=== PATIENT | female | born 1960 | race Caucasian/White ===

== ENCOUNTER 2016-10-30 21:59 | Emergency (ER) | payer OTHER ==
[~2016-10-30] VITALS: Ht 165.1 cm; Wt 92.4 kg
[~2016-10-30 21:59] MED LIST: AVAPRO150 MG PO; NORVASC10 MG PO
[2016-10-30] MEDS ORDERED: NAPROSYN500 MG PO (23:42)
[2016-10-30 23:51] VITALS: BP 140/77
== END 2016-10-30 23:52 | disposition home or self-care (01) ==
LOC: EME 21:59
DX: S00.93XA Contusion of unspecified part of head, initial encounter (principal); M54.2 Cervicalgia; Y04.0XXA Assault by unarmed brawl or fight, initial encounter; Z88.6 Allergy status to analgesic agent
CPT/HCPCS: 70450; 72125; 99281; 99284